=== PATIENT | male | born 1965 ===

== ENCOUNTER 2018-05-03 12:41 | Outpatient (CLI) | payer OTHER ==
[~2018-05-03] VITALS: Ht 162.6 cm; Wt 77.1 kg
== END 2018-05-03 13:00 | disposition home or self-care (01) ==
LOC: OFIC 805 12:41
DX: J33.8 Other polyp of sinus (principal); J98.8 Other specified respiratory disorders; J45.998 Other asthma; J32.8 Other chronic sinusitis

== ENCOUNTER 2018-12-19 14:29 | Outpatient (CLI) | payer OTHER | END 2018-12-19 14:40 | disposition home or self-care (01) | LOC: OFIC 805 14:29 | DX: J32.8 Other chronic sinusitis (principal); J33.8 Other polyp of sinus; H54.61 Unqualified visual loss, right eye, normal vision left eye; R09.81 Nasal congestion ==

== ENCOUNTER 2023-03-13 19:00 | Emergency (ER) | payer OTHER ==
[~2023-03-13] VITALS: Ht 162.6 cm; Wt 82.6 kg
[2023-03-13] MEDS ORDERED: HUMALOG100 UNIT/2 SQ (19:16)
[2023-03-13] MEDS ORDERED: CARVEDILOL3.125 M1 PO (19:17)
[2023-03-13] MEDS ORDERED: ATORVASTATIN CA10 MG PO (19:17)
[2023-03-13] MEDS ORDERED: INDAPAMIDE1.25 MG PO (19:18)
[2023-03-13] MEDS ORDERED: CARDURA1 MG PO (19:18)
[2023-03-13] MEDS ORDERED: VALSARTAN4 MG/1 ML PO (19:19)
== END 2023-03-13 21:51 | disposition home or self-care (01) ==
LOC: ER 19:00
DX: J10.1 Influenza due to other identified influenza virus with other respiratory manifestations (principal); Z20.822 Contact with and (suspected) exposure to COVID-19; Z88.6 Allergy status to analgesic agent

== ENCOUNTER 2023-05-20 01:30 | Emergency (ER) | payer OTHER ==
[~2023-05-20] VITALS: Ht 162.6 cm; Wt 81.6 kg
[~2023-05-20 01:30] MED LIST: ATORVASTATIN CA10 MG PO; CARDURA1 MG PO; CARVEDILOL3.125 M1 PO; HUMALOG100 UNIT/2 SQ; INDAPAMIDE1.25 MG PO; VALSARTAN4 MG/1 ML PO
== END 2023-05-20 04:45 | disposition designated cancer center or children's hospital (05) ==
LOC: ER 01:30
DX: I25.9 Chronic ischemic heart disease, unspecified (principal); Z88.6 Allergy status to analgesic agent; I10 Essential (primary) hypertension; E11.9 Type 2 diabetes mellitus without complications; Z20.822 Contact with and (suspected) exposure to COVID-19